=== PATIENT | female | born 1970 | race African-American/Black ===

== ENCOUNTER 2016-04-11 08:07 | Outpatient (CLI) | payer MEDICARE, MEDICAID ==
[~2016-04-11 08:07] MED LIST: FERRIC CARBOXYMALTOSE 750 MG in NORMAL SALINE 250 ML IV PRN; NORMAL SALINE 250 ML IV PRN
[2016-04-11 08:44] VITALS: BP 159/119
== END 2016-04-11 09:17 | disposition home or self-care (01) ==
LOC: II 08:07 → 5TH 08:09 → II 09:17
PROVIDERS: ATTEND Internal Medicine
PROC: 3E043GC Introduction of Other Therapeutic Substance into Central Vein, Percutaneous Approach (ICD-10-PCS; principal; 2016-04-11)
DX: D50.9 Iron deficiency anemia, unspecified (principal); K90.9 Intestinal malabsorption, unspecified
CPT/HCPCS: 96365; J7050; J1439

== ENCOUNTER 2016-04-18 07:58 | Outpatient (CLI) | payer MEDICARE, MEDICAID ==
[~2016-04-18 07:58] MED LIST changes: -FERRIC CARBOXYMALTOSE 750 MG in NORMAL SALINE 250 ML IV PRN
[2016-04-18] MEDS ORDERED: FERRIC CARBOXYMALTOSE 750 MG in NORMAL SALINE 250 ML IV PRN (08:00)
[2016-04-18 09:12] VITALS: BP 155/81
== END 2016-04-18 09:16 | disposition home or self-care (01) ==
LOC: II 07:58 → 5TH 08:01 → II 09:16
PROVIDERS: ATTEND Specialist
PROC: 3E043GC Introduction of Other Therapeutic Substance into Central Vein, Percutaneous Approach (ICD-10-PCS; principal; 2016-04-18)
DX: D50.9 Iron deficiency anemia, unspecified (principal); K90.9 Intestinal malabsorption, unspecified
CPT/HCPCS: 96365; J7050; J1439; 96367